=== PATIENT | male | born 1955 | race Two or more races ===

== ENCOUNTER 2020-11-30 20:30 | Emergency (ER) | payer MEDICAID ==
[~2020-11-30] VITALS: Ht 188 cm; Wt 130.0 kg
[2020-11-30 21:42] LABS: HEMATOCRIT. 27.2 % (42.0-52.0); HEMOGLOBIN. 9.5 g/dL (14.0-18.0); MEAN CORPUSCULAR HEMOGLOBIN 38.4 pg (28.0-32.0); MEAN CORPUSCULAR VOLUME 110.2 fL (80.0-94.0); MEAN PLATELET VOLUME 8.8 fl (7.4-10.4); PLATELET 88 x1000/uL (130-400); RED BLOOD CELL COUNT 2.47 mill/uL (4.7-6.1); RED CELL DISTRIBUTION WIDTH 15.7 % (11.6-14.6)
[2020-11-30 21:45] LABS: CHLORIDE 94 mEq/L (98-107)
[2020-11-30 21:51] LABS: BETA HYDROXYBUTYRATE 0.3 mMol/L (0.0-0.3)
[2020-11-30 22:06] LABS: PLATELET ESTIMATE DECREASED
[2020-12-01 01:00] VITALS: BP 149/75
[2020-12-01 01:15] LABS: CLARITY URINE CLEAR (CLEAR); COLOR URINE DARK YELLOW (YELLOW); KETONES URINE NEGATIVE (NEGATIVE); LEUKOCYTE ESTERASE URINE NEGATIVE (NEGATIVE); NITRITE URINE NEGATIVE (NEGATIVE); OCCULT BLOOD URINE NEGATIVE (NEGATIVE); PROTEIN URINE NEGATIVE (NEGATIVE); SPECIFIC GRAVITY URINE 1.015 (1.005-1.030)
[2020-12-01 01:35] LABS: *AMPHETAMINES SCREEN URINE NEGATIVE (NEGATIVE); *BARBITURATES SCREEN URINE NEGATIVE (NEGATIVE); *BENZODIAZEPINES SCREEN URINE NEGATIVE (NEGATIVE); *COCAINE SCREEN URINE NEGATIVE (NEGATIVE); METHADONE URINE SCREEN NEGATIVE (NEGATIVE)
[2020-12-01 01:36] LABS: CANNABINOID URINE SCREEN NEGATIVE (NEGATIVE); OPIATES URINE SCREEN PRESUMTIVE POSITIVE (NEGATIVE); PHENCYCLIDINE URINE SCREEN NEGATIVE (NEGATIVE)
== END 2020-12-01 02:35 | disposition short-term general hospital (02) ==
LOC: ER 20:30 → CANBEDREQ 12-01 03:47
DX: K72.00 Acute and subacute hepatic failure without coma (principal); R18.8 Other ascites; N17.0 Acute kidney failure with tubular necrosis; R26.9 Unspecified abnormalities of gait and mobility; K76.9 Liver disease, unspecified; D50.9 Iron deficiency anemia, unspecified; E11.65 Type 2 diabetes mellitus with hyperglycemia; E78.00 Pure hypercholesterolemia, unspecified; M19.90 Unspecified osteoarthritis, unspecified site; E87.1 Hypo-osmolality and hyponatremia; I11.0 Hypertensive heart disease with heart failure; I50.9 Heart failure, unspecified; E87.2 Acidosis; R74.01 Elevation of levels of liver transaminase levels; Z95.810 Presence of automatic (implantable) cardiac defibrillator
CPT/HCPCS: 36415; 71045; 74176; 80053; 80305; 81003; 82010; 82140; 83605; 83880; 84145; 84484; 85025; 93005; 93970; 99285

== ENCOUNTER 2020-12-11 18:53 | Inpatient (IN) | payer MEDICAID, OTHER ==
[~2020-12-11] VITALS: Ht 185.4 cm; Wt 103.0 kg
[2020-12-11] MEDS ORDERED: SODIUM CHLORIDE 0.9% 1000ML BAG (SEPSIS BOLUS) IV ONE (20:00)
[2020-12-11] MEDS ORDERED: PIPERACILLIN/TAZ 3.375G PREMIX 50 ML IV ONE (20:00)
[2020-12-11] MEDS ORDERED: VANCOMYCIN 1 G PREMIX 200 ML IV ONE (20:00)
[2020-12-11 20:44] LABS: BASOPHILS % 0.3 % (0.0-2.0); EOSINOPHILS % 0.6 % (0.0-5.0); HEMATOCRIT. 29.9 % (42.0-52.0); HEMOGLOBIN. 10.5 g/dL (14.0-18.0); LYMPHOCYTES % 11.8 % (20.0-50.0); MEAN CORPUSCULAR HEMOGLOBIN 37.2 pg (28.0-32.0); MEAN CORPUSCULAR VOLUME 106.2 fL (80.0-94.0); MONOCYTES % 13.4 % (2.0-8.0); NEUTROPHILS % 73.9 % (40.0-76.0); RED BLOOD CELL COUNT 2.81 mill/uL (4.7-6.1); RED CELL DISTRIBUTION WIDTH 15.2 % (11.6-14.6)
[2020-12-11 20:52] LABS: CHLORIDE 97 mEq/L (98-107)
[2020-12-11 20:55] LABS: INR 1.6; PARTIAL THROMBOPLASTIN TIME 45.6 sec (23.4-31.0); PROTHROMBIN TIME 16.8 sec (9.6-11.0)
[2020-12-11] MEDS ORDERED: NOREPINEPHRINE 8 MG in DEXT 5% WATER 242 ML IV STA (22:38)
[2020-12-11] MEDS ORDERED: NOREPINEPHRINE 8MG/250ML PMX 250 ML IV PRN (22:45)
[2020-12-11] MEDS ORDERED: DEXAMETHASONE 10 MG/ML VIAL IV ONE (22:45)
[2020-12-12] VITALS (75 sets, daily range): BP systolic 57–161; BP diastolic 38–86
[2020-12-12 01:32] LABS: BG BASE EXCESS 1.5 mmol/L (-2.0-2.0); BG CARBOXYHEMOGLOBIN 0.3 % (0.5-1.5); BG DEOXYHEMOGLOBIN 4.8 % (0.0-5.0); BG FRACTION INSPIRED OXYGEN 28; BG HCO3 ACT 24.8 mmol/L (22.0-26.0); BG OXYGEN SATURATION 95.2 % (92.0-98.5); BG OXYHEMOGLOBIN 94.9 % (94.0-97.0); BG PH 7.468 (7.350-7.450); BG PO2 74.8 mmHg (75.0-100.0); BG SAMPLE SITE RIGHT RADIAL; BG VENT MODE NASAL CANNULA
[2020-12-12] MEDS ORDERED: POTA20TA82 MT (02:40)
[2020-12-12] MEDS ORDERED: ASCO500C18 MT (02:40)
[2020-12-12] MEDS ORDERED: LOSA50TA41 MT (02:40)
[2020-12-12] MEDS ORDERED: FURO40TA5 MT (02:40)
[2020-12-12] MEDS ORDERED: DOCU-150 MT (02:40)
[2020-12-12] MEDS ORDERED: ATOR-2 MT (02:40)
[2020-12-12] MEDS ORDERED: ASPI-1497 MT (02:40)
[2020-12-12] MEDS ORDERED: LACT10SO30 MT (02:40)
[2020-12-12] MEDS ORDERED: MULT-1146 MT (02:40)
[2020-12-12] MEDS ORDERED: ZINC220C6 PO (02:40)
[2020-12-12] MEDS ORDERED: SENN-155 PO (02:40)
[2020-12-12] MEDS ORDERED: FAMO20TA8 MT (02:40)
[2020-12-12] MEDS ORDERED: ZOLP10TA2 MT (02:40)
[2020-12-12] MEDS ORDERED: CARV6.2548 MT (02:40)
[2020-12-12] MEDS ORDERED: SODIUM CHLORIDE 0.9% 1,000 ML IV ONE (02:45)
[2020-12-12] MEDS ORDERED: PIPERACILLIN/TAZOBACTAM 3.375GM/50ML PREMIX IV ONE (02:45)
[2020-12-12] MEDS ORDERED: VANCOMYCIN 1 G PREMIX 200 ML IV SCH ×2 (03:00→04:00)
[2020-12-12] MEDS ORDERED: PIPERACILLIN/TAZOBACTAM 3.375 G in DEXT 5% WATER 100 ML IV SCH (04:00)
[2020-12-12] MEDS: NOREPINEPHRINE 32 MG in DEXT 5% WATER 218 ML IV PRN ×2 (04:46→17:18)
[2020-12-12] MEDS ORDERED: PIPERACILLIN/TAZOBACTAM 2.25 G in DEXTROSE 5% WATER 50 ML IV SCH (06:00)
[2020-12-12] MEDS ORDERED: ONDANSETRON HCL 4MG/2ML INJ IV PRN (09:00)
[2020-12-12] MEDS ORDERED: DEXTROSE 50% WATER 50ML SYRINGE IV PRN (09:00)
[2020-12-12] MEDS ORDERED: VANCOMYCIN 1 G PREMIX 200 ML IV NR (10:00)
[2020-12-12] MEDS: SODIUM CHLORIDE 0.9% 1,000 ML IV SCH (10:26)
[2020-12-12 10:30] LABS: HEMATOCRIT. 34.7 % (42.0-52.0); HEMOGLOBIN. 12.1 g/dL (14.0-18.0); MEAN CORPUSCULAR VOLUME 106.2 fL (80.0-94.0); RED BLOOD CELL COUNT 3.27 mill/uL (4.7-6.1); RED CELL DISTRIBUTION WIDTH 15.4 % (11.6-14.6)
[2020-12-12 10:57] LABS: PLATELET ESTIMATE NORMAL
[2020-12-12] MEDS: BLOOD SUGAR DIAGNOSTIC STRIP TEST SCH ×3 (11:30→21:23)
[2020-12-12 12:49] LABS: CREATINE KINASE 111 IU/L (39-308)
[2020-12-12] MEDS: INSULIN LISPRO 100 UNITS/ML SUBCUT SCH ×3 (13:06→21:08)
[2020-12-12] MEDS: CEFEPIME 1,000 MG in DEXTROSE 5% WATER 50 ML IV SCH (13:34)
[2020-12-12] MEDS: METRONIDAZOLE 500 MG PREMIX 100 ML IV SCH ×2 (13:34→21:02)
[2020-12-12 17:46] LABS: CLARITY URINE TURBID (CLEAR); COLOR URINE DARK YELLOW (YELLOW); KETONES URINE TRACE (NEGATIVE); LEUKOCYTE ESTERASE URINE 1+ (NEGATIVE); NITRITE URINE NEGATIVE (NEGATIVE); OCCULT BLOOD URINE 3+ (NEGATIVE); PROTEIN URINE 2+ (NEGATIVE); SPECIFIC GRAVITY URINE 1.028 (1.005-1.030)
[2020-12-12 18:14] LABS: *COCAINE SCREEN URINE NEGATIVE (NEGATIVE); METHADONE URINE SCREEN NEGATIVE (NEGATIVE); OPIATES URINE SCREEN PRESUMTIVE POSITIVE (NEGATIVE)
[2020-12-12 18:16] LABS: *AMPHETAMINES SCREEN URINE NEGATIVE (NEGATIVE); *BARBITURATES SCREEN URINE NEGATIVE (NEGATIVE); *BENZODIAZEPINES SCREEN URINE NEGATIVE (NEGATIVE); CANNABINOID URINE SCREEN NEGATIVE (NEGATIVE); PHENCYCLIDINE URINE SCREEN NEGATIVE (NEGATIVE)
[2020-12-13] VITALS (95 sets, daily range): BP systolic 74–141; BP diastolic 41–80
[2020-12-13] MEDS: NOREPINEPHRINE 32 MG in DEXT 5% WATER 218 ML IV PRN ×2 (03:46→16:20)
[2020-12-13 05:51] LABS: HEMOGLOBIN. 13.1 g/dL (14.0-18.0); MEAN CORPUSCULAR HEMOGLOBIN 35.4 pg (28.0-32.0); MEAN CORPUSCULAR VOLUME 108.3 fL (80.0-94.0); MEAN PLATELET VOLUME 9.3 fl (7.4-10.4); PLATELET 185 x1000/uL (130-400); RED CELL DISTRIBUTION WIDTH 16.1 % (11.6-14.6)
[2020-12-13] MEDS: METRONIDAZOLE 500 MG PREMIX 100 ML IV SCH ×3 (05:59→23:22)
[2020-12-13] MEDS: SODIUM CHLORIDE 0.9% 1,000 ML IV SCH ×2 (05:59→09:30)
[2020-12-13] MEDS: BLOOD SUGAR DIAGNOSTIC STRIP TEST SCH ×4 (06:44→21:33)
[2020-12-13] MEDS: INSULIN LISPRO 100 UNITS/ML SUBCUT SCH ×4 (06:48→21:45)
[2020-12-13 08:37] LABS: INR 1.7; PARTIAL THROMBOPLASTIN TIME 44.2 sec (23.4-31.0); PROTHROMBIN TIME 17.6 sec (9.6-11.0)
[2020-12-13] MEDS ORDERED: VANCOMYCIN 1500MG in DEXTROSE 5% WATER 250ML IV SCH (09:00)
[2020-12-13] MEDS ORDERED: INSULIN GLARGINE UD 100 UNITS/ML SYR SUBCUT NR (12:30)
[2020-12-13 12:33] LABS: PLATELET ESTIMATE NORMAL
[2020-12-13] MEDS: MIDODRINE HCL 5MG TABLET PO SCH ×2 (12:49→22:01)
[2020-12-13] MEDS: CEFEPIME 1,000 MG in DEXTROSE 5% WATER 50 ML IV SCH (12:49)
[2020-12-13] MEDS: ACETAMINOPHEN 325MG TABLET PO PRN (16:30)
[2020-12-13] MEDS ORDERED: VANCOMYCIN 1250MG in DEXTROSE 5% WATER 250ML IV NR (18:00)
[2020-12-13] MEDS: GABAPENTIN 100MG CAPSULE PO SCH (22:01)
[2020-12-13] MEDS: INSULIN GLARGINE UD 100 UNITS/ML SYR SUBCUT SCH (22:02)
[2020-12-14] VITALS (103 sets, daily range): BP systolic 69–148; BP diastolic 33–74
[2020-12-14 05:43] LABS: BASOPHILS % 0.3 % (0.0-2.0); HEMATOCRIT. 36.7 % (42.0-52.0); HEMOGLOBIN. 12.3 g/dL (14.0-18.0); LYMPHOCYTES % 7.1 % (20.0-50.0); MEAN CORPUSCULAR HEMOGLOBIN 35.5 pg (28.0-32.0); MEAN CORPUSCULAR VOLUME 105.6 fL (80.0-94.0); MEAN PLATELET VOLUME 9.6 fl (7.4-10.4); MONOCYTES % 11.1 % (2.0-8.0); NEUTROPHILS % 81.5 % (40.0-76.0); PLATELET 114 x1000/uL (130-400); RED BLOOD CELL COUNT 3.47 mill/uL (4.7-6.1); RED CELL DISTRIBUTION WIDTH 15.9 % (11.6-14.6)
[2020-12-14] MEDS: BLOOD SUGAR DIAGNOSTIC STRIP TEST SCH ×4 (05:53→21:06)
[2020-12-14] MEDS: METRONIDAZOLE 500 MG PREMIX 100 ML IV SCH ×3 (06:33→21:52)
[2020-12-14] MEDS: MIDODRINE HCL 5MG TABLET PO SCH ×3 (06:33→21:52)
[2020-12-14] MEDS: GABAPENTIN 100MG CAPSULE PO SCH ×3 (06:33→21:52)
[2020-12-14] MEDS: SODIUM CHLORIDE 0.9% 1,000 ML IV SCH (06:34)
[2020-12-14] MEDS: INSULIN LISPRO 100 UNITS/ML SUBCUT SCH ×4 (06:37→21:49)
[2020-12-14] MEDS: ACETAMINOPHEN 325MG TABLET PO PRN (09:40)
[2020-12-14] MEDS: INSULIN GLARGINE UD 100 UNITS/ML SYR SUBCUT SCH ×2 (09:41→21:53)
[2020-12-14] MEDS: NOREPINEPHRINE 32 MG in DEXT 5% WATER 218 ML IV PRN (09:53)
[2020-12-14] MEDS ORDERED: LIDOCAINE HCL 1% 20ML VIAL (Pyxis) INJ ONE (10:06)
[2020-12-14] MEDS ORDERED: SODIUM BICARBONATE 4% (2.4MEQ) 5ML VIAL IV ONE (10:07)
[2020-12-14] MEDS: CEFEPIME 1,000 MG in DEXTROSE 5% WATER 50 ML IV SCH (12:10)
[2020-12-14 13:55] LABS: BG BASE EXCESS -4.2 mmol/L (-2.0-2.0); BG CARBOXYHEMOGLOBIN 0.6 % (0.5-1.5); BG DEOXYHEMOGLOBIN 8.7 % (0.0-5.0); BG FRACTION INSPIRED OXYGEN 36; BG HCO3 ACT 20.3 mmol/L (22.0-26.0); BG METHEMOGLOBIN 0.3 % (0.0-1.5); BG OXYGEN SATURATION 91.2 % (92.0-98.5); BG OXYHEMOGLOBIN 90.4 % (94.0-97.0); BG PCO2 35.5 mmHg (35.0-45.0); BG PH 7.376 (7.350-7.450); BG PO2 66.1 mmHg (75.0-100.0); BG SAMPLE SITE RIGHT RADIAL; BG TOTAL HEMOGLOBIN 13.3 g/dL (12.0-18.0); BG VENT MODE NASAL CANNULA
[2020-12-14 14:25] LABS: HEPATITIS B SURFACE AB 12.7 mIU/mL
[2020-12-14 14:36] LABS: HEPATITIS B SURFACE ANTIGEN NEGATIVE
[2020-12-14] MEDS ORDERED: ALBUMIN HUMAN 25GM/100ML (25%) IV NR (15:00)
[2020-12-14 15:06] LABS: HEPATITIS A AB IGM NEGATIVE (NEGATIVE)
[2020-12-15] VITALS (99 sets, daily range): BP systolic 55–171; BP diastolic 34–158
[2020-12-15] MEDS: METRONIDAZOLE 500 MG PREMIX 100 ML IV SCH ×3 (05:24→22:07)
[2020-12-15] MEDS: MIDODRINE HCL 5MG TABLET PO SCH ×3 (05:24→22:08)
[2020-12-15] MEDS: GABAPENTIN 100MG CAPSULE PO SCH ×3 (05:24→17:45)
[2020-12-15 05:48] LABS: HEMATOCRIT. 36.6 % (42.0-52.0); HEMOGLOBIN. 12.3 g/dL (14.0-18.0); MEAN CORPUSCULAR HEMOGLOBIN 36.1 pg (28.0-32.0); MEAN CORPUSCULAR VOLUME 106.9 fL (80.0-94.0); MEAN PLATELET VOLUME 9.4 fl (7.4-10.4); PLATELET 80 x1000/uL (130-400); RED BLOOD CELL COUNT 3.42 mill/uL (4.7-6.1); RED CELL DISTRIBUTION WIDTH 15.8 % (11.6-14.6)
[2020-12-15] MEDS: BLOOD SUGAR DIAGNOSTIC STRIP TEST SCH ×4 (06:16→20:03)
[2020-12-15] MEDS: INSULIN LISPRO 100 UNITS/ML SUBCUT SCH ×4 (06:17→20:03)
[2020-12-15] MEDS ORDERED: LIDOCAINE HCL 1% 20ML VIAL (Pyxis) INJ ONE (08:59)
[2020-12-15] MEDS: INSULIN GLARGINE UD 100 UNITS/ML SYR SUBCUT SCH ×2 (10:00→22:09)
[2020-12-15 10:40] LABS: PLATELET ESTIMATE DECREASED
[2020-12-15] MEDS: CEFEPIME 1,000 MG in DEXTROSE 5% WATER 50 ML IV SCH (12:30)
[2020-12-15] MEDS ORDERED: HEPARIN SODIUM 1,000 UNIT/1ML VIAL IV SCH (14:00)
[2020-12-15] MEDS: NOREPINEPHRINE 32 MG in DEXT 5% WATER 218 ML IV PRN (17:57)
[2020-12-15] MEDS: ACETAMINOPHEN 325MG TABLET PO PRN (22:08)
[2020-12-16] VITALS (80 sets, daily range): BP systolic 64–167; BP diastolic 34–82
[2020-12-16] MEDS: MIDODRINE HCL 5MG TABLET PO SCH ×3 (05:22→21:10)
[2020-12-16] MEDS: METRONIDAZOLE 500 MG PREMIX 100 ML IV SCH ×3 (05:22→21:06)
[2020-12-16] MEDS: MORPHINE SULFATE 4 MG/ML CPJ (NOT FOR IM USE) IV PRN (05:23)
[2020-12-16] MEDS: NOREPINEPHRINE 32 MG in DEXT 5% WATER 218 ML IV PRN (05:23)
[2020-12-16] MEDS: GABAPENTIN 100MG CAPSULE PO SCH ×3 (05:24→21:06)
[2020-12-16 05:44] LABS: MEAN CORPUSCULAR HEMOGLOBIN 35.3 pg (28.0-32.0); MEAN CORPUSCULAR VOLUME 106.1 fL (80.0-94.0); MEAN PLATELET VOLUME 9.6 fl (7.4-10.4); PLATELET 82 x1000/uL (130-400); RED BLOOD CELL COUNT 3.67 mill/uL (4.7-6.1); RED CELL DISTRIBUTION WIDTH 15.7 % (11.6-14.6)
[2020-12-16] MEDS: BLOOD SUGAR DIAGNOSTIC STRIP TEST SCH ×4 (05:53→21:00)
[2020-12-16] MEDS: INSULIN LISPRO 100 UNITS/ML SUBCUT SCH ×4 (05:53→21:07)
[2020-12-16] MEDS: INSULIN GLARGINE UD 100 UNITS/ML SYR SUBCUT SCH ×2 (10:51→21:08)
[2020-12-16] MEDS: CEFEPIME 1,000 MG in DEXTROSE 5% WATER 50 ML IV SCH (11:57)
[2020-12-16 14:21] LABS: PLATELET ESTIMATE DECREASED
[2020-12-16] MEDS ORDERED: ZOLPIDEM TARTRATE 5MG TABLET PO PRN (21:00)
[2020-12-17] VITALS (104 sets, daily range): BP systolic 48–169; BP diastolic 26–93
[2020-12-17] MEDS: MORPHINE SULFATE 4 MG/ML CPJ (NOT FOR IM USE) IV PRN (00:03)
[2020-12-17] MEDS: NOREPINEPHRINE 32 MG in DEXT 5% WATER 218 ML IV PRN ×3 (00:10→16:53)
[2020-12-17] MEDS ORDERED: VASOPRESSIN 20 UNIT in SODIUM CHLORIDE 0.9% 99 ML IV PRN ×2 (02:15→02:30)
[2020-12-17] MEDS: METRONIDAZOLE 500 MG PREMIX 100 ML IV SCH (05:24)
[2020-12-17] MEDS: MIDODRINE HCL 5MG TABLET PO SCH ×3 (05:24→21:57)
[2020-12-17] MEDS: GABAPENTIN 100MG CAPSULE PO SCH ×3 (05:24→21:57)
[2020-12-17 05:37] LABS: BASOPHILS % 0.6 % (0.0-2.0); EOSINOPHILS % 0.1 % (0.0-5.0); HEMATOCRIT. 38.4 % (42.0-52.0); HEMOGLOBIN. 12.7 g/dL (14.0-18.0); LYMPHOCYTES % 8.2 % (20.0-50.0); MEAN CORPUSCULAR VOLUME 106.1 fL (80.0-94.0); MEAN PLATELET VOLUME 9.7 fl (7.4-10.4); MONOCYTES % 12.3 % (2.0-8.0); NEUTROPHILS % 78.8 % (40.0-76.0); PLATELET 70 x1000/uL (130-400); RED BLOOD CELL COUNT 3.62 mill/uL (4.7-6.1); RED CELL DISTRIBUTION WIDTH 15.8 % (11.6-14.6)
[2020-12-17] MEDS: INSULIN LISPRO 100 UNITS/ML SUBCUT SCH ×4 (06:29→21:59)
[2020-12-17] MEDS: BLOOD SUGAR DIAGNOSTIC STRIP TEST SCH ×4 (06:29→21:42)
[2020-12-17] MEDS: INSULIN GLARGINE UD 100 UNITS/ML SYR SUBCUT SCH ×2 (10:39→21:58)
[2020-12-18] VITALS (103 sets, daily range): BP systolic 58–145; BP diastolic 36–121
[2020-12-18] MEDS: GABAPENTIN 100MG CAPSULE PO SCH ×3 (06:19→21:40)
[2020-12-18] MEDS: MIDODRINE HCL 5MG TABLET PO SCH ×3 (06:20→21:40)
[2020-12-18] MEDS: BLOOD SUGAR DIAGNOSTIC STRIP TEST SCH ×4 (06:38→21:46)
[2020-12-18] MEDS: INSULIN LISPRO 100 UNITS/ML SUBCUT SCH ×4 (06:48→21:43)
[2020-12-18 10:03] LABS: HEMATOCRIT 33.9 % (42.0-52.0); HEMOGLOBIN 11.6 g/dL (14.0-18.0); MEAN CORPUSCULAR HEMOGLOBIN 35.7 pg (28.0-32.0); MEAN CORPUSCULAR VOLUME 104.7 fL (80.0-94.0); RED BLOOD CELL COUNT 3.24 mill/uL (4.7-6.1); RED CELL DISTRIBUTION WIDTH 16.1 % (11.6-14.6)
[2020-12-18] MEDS: NOREPINEPHRINE 32 MG in DEXT 5% WATER 218 ML IV PRN (10:03)
[2020-12-18] MEDS: INSULIN GLARGINE UD 100 UNITS/ML SYR SUBCUT SCH ×2 (10:04→21:47)
[2020-12-18 10:10] LABS: CHLORIDE 101 mEq/L (98-107)
[2020-12-18] MEDS: MORPHINE SULFATE 4 MG/ML CPJ (NOT FOR IM USE) IV PRN (16:20)
[2020-12-18] MEDS: ALBUMIN HUMAN 12.5G/250ML (5%) IV NR ×2 (19:18→19:56)
[2020-12-19] VITALS (104 sets, daily range): BP systolic 62–164; BP diastolic 45–139
[2020-12-19] MEDS: CYANOCOBALAMIN 1000MCG TABLET PO SCH (05:53)
[2020-12-19] MEDS: GABAPENTIN 100MG CAPSULE PO SCH ×3 (05:53→22:38)
[2020-12-19 05:54] LABS: BASOPHILS % 0.9 % (0.0-2.0); EOSINOPHILS % 1.3 % (0.0-5.0); HEMATOCRIT. 30.4 % (42.0-52.0); HEMOGLOBIN. 10.7 g/dL (14.0-18.0); LYMPHOCYTES % 12.2 % (20.0-50.0); MEAN CORPUSCULAR HEMOGLOBIN 36.7 pg (28.0-32.0); MEAN CORPUSCULAR VOLUME 104.2 fL (80.0-94.0); MONOCYTES % 14.6 % (2.0-8.0); RED BLOOD CELL COUNT 2.92 mill/uL (4.7-6.1); RED CELL DISTRIBUTION WIDTH 15.8 % (11.6-14.6)
[2020-12-19] MEDS: MIDODRINE HCL 5MG TABLET PO SCH ×3 (05:54→22:38)
[2020-12-19] MEDS: BLOOD SUGAR DIAGNOSTIC STRIP TEST SCH ×4 (06:32→21:00)
[2020-12-19] MEDS: INSULIN LISPRO 100 UNITS/ML SUBCUT SCH ×4 (07:09→22:39)
[2020-12-19] MEDS: MORPHINE SULFATE 4 MG/ML CPJ (NOT FOR IM USE) IV PRN (08:55)
[2020-12-19] MEDS: INSULIN GLARGINE UD 100 UNITS/ML SYR SUBCUT SCH ×2 (10:31→22:39)
[2020-12-19] MEDS ORDERED: LIDOCAINE HCL 1% 20ML VIAL (Pyxis) INJ ONE (11:24)
[2020-12-19] MEDS: NOREPINEPHRINE 32 MG in DEXT 5% WATER 218 ML IV PRN (13:17)
[2020-12-19 16:41] LABS: INR 1.7; PROTHROMBIN TIME 17.2 sec (9.6-11.0)
[2020-12-20] VITALS (101 sets, daily range): BP systolic 62–134; BP diastolic 37–80
[2020-12-20] MEDS: ACETAMINOPHEN 325MG TABLET PO PRN (02:27)
[2020-12-20] MEDS: MORPHINE SULFATE 4 MG/ML CPJ (NOT FOR IM USE) IV PRN (02:43)
[2020-12-20 04:57] LABS: HEMATOCRIT. 34.1 % (42.0-52.0); HEMOGLOBIN. 11.6 g/dL (14.0-18.0); MEAN CORPUSCULAR VOLUME 105.5 fL (80.0-94.0); RED BLOOD CELL COUNT 3.23 mill/uL (4.7-6.1); RED CELL DISTRIBUTION WIDTH 15.9 % (11.6-14.6)
[2020-12-20 05:18] LABS: PHOSPHORUS 7.1 mg/dL (2.5-4.9)
[2020-12-20] MEDS: CYANOCOBALAMIN 1000MCG TABLET PO SCH (06:19)
[2020-12-20] MEDS: GABAPENTIN 100MG CAPSULE PO SCH ×3 (06:19→21:39)
[2020-12-20] MEDS: MIDODRINE HCL 5MG TABLET PO SCH ×3 (06:20→21:39)
[2020-12-20] MEDS: BLOOD SUGAR DIAGNOSTIC STRIP TEST SCH ×4 (06:20→21:43)
[2020-12-20] MEDS: INSULIN LISPRO 100 UNITS/ML SUBCUT SCH ×4 (06:21→21:40)
[2020-12-20] MEDS: INSULIN GLARGINE UD 100 UNITS/ML SYR SUBCUT SCH ×2 (09:49→23:10)
[2020-12-20 10:33] LABS: PLATELET 31 x1000/uL (130-400)
[2020-12-20 10:37] LABS: PLATELET ESTIMATE DECREASED
[2020-12-20] MEDS ORDERED: PHYTONADIONE 10MG/ML AMP SUBCUT NR (11:15)
[2020-12-21] VITALS (110 sets, daily range): BP systolic 76–151; BP diastolic 45–77
[2020-12-21] MEDS: CYANOCOBALAMIN 1000MCG TABLET PO SCH (05:10)
[2020-12-21] MEDS: GABAPENTIN 100MG CAPSULE PO SCH ×3 (05:10→21:45)
[2020-12-21] MEDS: MIDODRINE HCL 5MG TABLET PO SCH ×3 (05:10→17:50)
[2020-12-21] MEDS: MORPHINE SULFATE 4 MG/ML CPJ (NOT FOR IM USE) IV PRN (05:20)
[2020-12-21 05:56] LABS: CHLORIDE 97 mEq/L (98-107)
[2020-12-21 05:57] LABS: BASOPHILS % 0.6 % (0.0-2.0); EOSINOPHILS % 1.3 % (0.0-5.0); HEMATOCRIT. 30.8 % (42.0-52.0); HEMOGLOBIN. 10.4 g/dL (14.0-18.0); LYMPHOCYTES % 8.9 % (20.0-50.0); MEAN CORPUSCULAR HEMOGLOBIN 35.6 pg (28.0-32.0); MEAN PLATELET VOLUME 8.7 fl (7.4-10.4); MONOCYTES % 13.1 % (2.0-8.0); NEUTROPHILS % 76.1 % (40.0-76.0); RED BLOOD CELL COUNT 2.91 mill/uL (4.7-6.1); RED CELL DISTRIBUTION WIDTH 16.2 % (11.6-14.6)
[2020-12-21 06:01] LABS: PLATELET 30 x1000/uL (130-400)
[2020-12-21 06:02] LABS: INR 1.6; PARTIAL THROMBOPLASTIN TIME 49.9 sec (23.4-31.0); PROTHROMBIN TIME 16.6 sec (9.6-11.0)
[2020-12-21] MEDS: BLOOD SUGAR DIAGNOSTIC STRIP TEST SCH ×4 (06:33→21:35)
[2020-12-21] MEDS: INSULIN LISPRO 100 UNITS/ML SUBCUT SCH ×4 (06:41→21:47)
[2020-12-21] MEDS: CYANOCOBALAMIN/FA/PYRIDOXINE TABLET PO SCH (09:21)
[2020-12-21] MEDS: FLUDROCORTISONE ACETATE 0.1MG TABLET PO SCH (09:21)
[2020-12-21] MEDS: HYDROCODONE/ACETAMINOPHEN 10/325MG TABLET PO PRN ×2 (09:22→15:06)
[2020-12-21] MEDS: INSULIN GLARGINE UD 100 UNITS/ML SYR SUBCUT SCH ×2 (10:59→21:47)
[2020-12-21] MEDS: NOREPINEPHRINE 32 MG in DEXT 5% WATER 218 ML IV PRN (19:55)
[2020-12-22] VITALS (95 sets, daily range): BP systolic 81–141; BP diastolic 30–94
[2020-12-22] MEDS: MIDODRINE HCL 5MG TABLET PO SCH ×4 (00:36→17:30)
[2020-12-22 05:52] LABS: BASOPHILS % 0.3 % (0.0-2.0); EOSINOPHILS % 1.2 % (0.0-5.0); HEMATOCRIT. 29.6 % (42.0-52.0); HEMOGLOBIN. 10.1 g/dL (14.0-18.0); LYMPHOCYTES % 8.6 % (20.0-50.0); MEAN CORPUSCULAR HEMOGLOBIN 35.9 pg (28.0-32.0); MEAN CORPUSCULAR VOLUME 105.7 fL (80.0-94.0); MEAN PLATELET VOLUME 9.4 fl (7.4-10.4); MONOCYTES % 14.8 % (2.0-8.0); NEUTROPHILS % 75.1 % (40.0-76.0); RED CELL DISTRIBUTION WIDTH 16.1 % (11.6-14.6)
[2020-12-22 06:03] LABS: INR 1.5; PARTIAL THROMBOPLASTIN TIME 48.3 sec (23.4-31.0); PROTHROMBIN TIME 15.8 sec (9.6-11.0)
[2020-12-22] MEDS: GABAPENTIN 100MG CAPSULE PO SCH ×3 (06:08→22:12)
[2020-12-22] MEDS: HYDROCODONE/ACETAMINOPHEN 10/325MG TABLET PO PRN ×3 (06:09→16:22)
[2020-12-22] MEDS: BLOOD SUGAR DIAGNOSTIC STRIP TEST SCH ×4 (06:10→21:00)
[2020-12-22 06:13] LABS: PLATELET 35 x1000/uL (130-400)
[2020-12-22 06:46] LABS: CHLORIDE 98 mEq/L (98-107)
[2020-12-22] MEDS: CYANOCOBALAMIN 1000MCG TABLET PO SCH (07:00)
[2020-12-22] MEDS: INSULIN LISPRO 100 UNITS/ML SUBCUT SCH ×4 (07:35→22:17)
[2020-12-22] MEDS: FLUDROCORTISONE ACETATE 0.1MG TABLET PO SCH (08:49)
[2020-12-22] MEDS: CYANOCOBALAMIN/FA/PYRIDOXINE TABLET PO SCH (08:49)
[2020-12-22 09:42] LABS: BG BASE EXCESS -0.5 mmol/L (-2.0-2.0); BG CARBOXYHEMOGLOBIN 0.7 % (0.5-1.5); BG DEOXYHEMOGLOBIN 3.9 % (0.0-5.0); BG FRACTION INSPIRED OXYGEN 28; BG HCO3 ACT 24.5 mmol/L (22.0-26.0); BG METHEMOGLOBIN 0.2 % (0.0-1.5); BG OXYGEN SATURATION 96.1 % (92.0-98.5); BG OXYHEMOGLOBIN 95.2 % (94.0-97.0); BG PCO2 41.9 mmHg (35.0-45.0); BG PH 7.385 (7.350-7.450); BG PO2 88.2 mmHg (75.0-100.0); BG SAMPLE SITE RIGHT RADIAL; BG TOTAL HEMOGLOBIN 11.2 g/dL (12.0-18.0); BG VENT MODE NASAL CANNULA
[2020-12-22] MEDS: INSULIN GLARGINE UD 100 UNITS/ML SYR SUBCUT SCH ×2 (10:27→22:17)
[2020-12-22] MEDS: MORPHINE SULFATE 15MG TABLET SR PO SCH ×2 (13:00→22:14)
[2020-12-22] MEDS: NOREPINEPHRINE 32 MG in DEXT 5% WATER 218 ML IV PRN (21:56)
[2020-12-22] MEDS: LACTULOSE 20G/30ML UDC PO SCH (22:12)
[2020-12-23] VITALS (106 sets, daily range): BP systolic 71–157; BP diastolic 36–89
[2020-12-23] MEDS: MIDODRINE HCL 5MG TABLET PO SCH ×4 (00:25→17:37)
[2020-12-23] MEDS: GABAPENTIN 100MG CAPSULE PO SCH ×3 (05:49→22:09)
[2020-12-23] MEDS: LACTULOSE 20G/30ML UDC PO SCH ×3 (05:49→22:09)
[2020-12-23] MEDS: CYANOCOBALAMIN 1000MCG TABLET PO SCH (05:50)
[2020-12-23 06:01] LABS: EOSINOPHILS % 1.5 % (0.0-5.0); HEMATOCRIT. 31.1 % (42.0-52.0); HEMOGLOBIN. 10.4 g/dL (14.0-18.0); LYMPHOCYTES % 11.8 % (20.0-50.0); MEAN CORPUSCULAR HEMOGLOBIN 36.3 pg (28.0-32.0); MEAN CORPUSCULAR VOLUME 108.6 fL (80.0-94.0); MEAN PLATELET VOLUME 9.6 fl (7.4-10.4); MONOCYTES % 13.9 % (2.0-8.0); NEUTROPHILS % 71.8 % (40.0-76.0); RED BLOOD CELL COUNT 2.87 mill/uL (4.7-6.1); RED CELL DISTRIBUTION WIDTH 17.2 % (11.6-14.6)
[2020-12-23] MEDS: BLOOD SUGAR DIAGNOSTIC STRIP TEST SCH ×4 (06:05→21:00)
[2020-12-23] MEDS: INSULIN LISPRO 100 UNITS/ML SUBCUT SCH ×4 (06:24→22:11)
[2020-12-23 07:05] LABS: PLATELET 43 x1000/uL (130-400)
[2020-12-23] MEDS: CYANOCOBALAMIN/FA/PYRIDOXINE TABLET PO SCH (09:13)
[2020-12-23] MEDS: INSULIN GLARGINE UD 100 UNITS/ML SYR SUBCUT SCH ×2 (09:13→22:18)
[2020-12-23] MEDS: FLUDROCORTISONE ACETATE 0.1MG TABLET PO SCH (09:14)
[2020-12-23] MEDS: MORPHINE SULFATE 15MG TABLET SR PO SCH ×2 (09:14→22:10)
[2020-12-23 10:51] LABS: INR 1.4
[2020-12-23] MEDS: NOREPINEPHRINE 32 MG in DEXT 5% WATER 218 ML IV PRN (22:12)
[2020-12-24] VITALS (95 sets, daily range): BP systolic 81–120; BP diastolic 37–61
[2020-12-24] MEDS: MIDODRINE HCL 5MG TABLET PO SCH ×4 (00:04→17:14)
[2020-12-24] MEDS: LACTULOSE 20G/30ML UDC PO SCH ×3 (06:31→22:00)
[2020-12-24] MEDS: GABAPENTIN 100MG CAPSULE PO SCH ×3 (06:31→22:19)
[2020-12-24] MEDS: CYANOCOBALAMIN 1000MCG TABLET PO SCH (06:32)
[2020-12-24] MEDS: INSULIN LISPRO 100 UNITS/ML SUBCUT SCH ×4 (06:33→21:00)
[2020-12-24] MEDS: BLOOD SUGAR DIAGNOSTIC STRIP TEST SCH ×4 (06:35→21:14)
[2020-12-24 06:56] LABS: BASOPHILS % 0.4 % (0.0-2.0); EOSINOPHILS % 1.4 % (0.0-5.0); HEMATOCRIT. 26.4 % (42.0-52.0); HEMOGLOBIN. 8.9 g/dL (14.0-18.0); LYMPHOCYTES % 7.4 % (20.0-50.0); MEAN CORPUSCULAR HEMOGLOBIN 36.7 pg (28.0-32.0); MEAN CORPUSCULAR VOLUME 108.6 fL (80.0-94.0); MEAN PLATELET VOLUME 9.2 fl (7.4-10.4); MONOCYTES % 12.5 % (2.0-8.0); NEUTROPHILS % 78.3 % (40.0-76.0); RED BLOOD CELL COUNT 2.43 mill/uL (4.7-6.1); RED CELL DISTRIBUTION WIDTH 16.7 % (11.6-14.6)
[2020-12-24 07:19] LABS: PLATELET 50 x1000/uL (130-400)
[2020-12-24] MEDS ORDERED: LIDOCAINE HCL 1% 20ML VIAL (Pyxis) INJ ONE (07:50)
[2020-12-24 07:51] LABS: INR 1.4; PROTHROMBIN TIME 15.1 sec (9.6-11.0)
[2020-12-24] MEDS ORDERED: SODIUM BICARBONATE 4% (2.4MEQ) 5ML VIAL IV ONE (07:51)
[2020-12-24] MEDS ORDERED: ALBUMIN HUMAN 25GM/500ML (5%) IV PRN (08:30)
[2020-12-24] MEDS: MORPHINE SULFATE 15MG TABLET SR PO SCH ×2 (10:29→22:20)
[2020-12-24] MEDS: FLUDROCORTISONE ACETATE 0.1MG TABLET PO SCH (10:29)
[2020-12-24] MEDS: INSULIN GLARGINE UD 100 UNITS/ML SYR SUBCUT SCH ×2 (10:30→22:20)
[2020-12-24] MEDS: CYANOCOBALAMIN/FA/PYRIDOXINE TABLET PO SCH (10:30)
[2020-12-24] MEDS: HYDROCODONE/ACETAMINOPHEN 10/325MG TABLET PO PRN (12:23)
[2020-12-25] VITALS (80 sets, daily range): BP systolic 68–158; BP diastolic 26–86
[2020-12-25] MEDS: MIDODRINE HCL 5MG TABLET PO SCH ×5 (00:10→23:37)
[2020-12-25 04:56] LABS: BASOPHILS % 0.5 % (0.0-2.0); EOSINOPHILS % 1.2 % (0.0-5.0); HEMATOCRIT. 29.5 % (42.0-52.0); MEAN CORPUSCULAR HEMOGLOBIN 36.5 pg (28.0-32.0); MEAN CORPUSCULAR VOLUME 107.3 fL (80.0-94.0); MEAN PLATELET VOLUME 8.8 fl (7.4-10.4); MONOCYTES % 13.8 % (2.0-8.0); NEUTROPHILS % 76.5 % (40.0-76.0); PLATELET 59 x1000/uL (130-400); RED BLOOD CELL COUNT 2.75 mill/uL (4.7-6.1); RED CELL DISTRIBUTION WIDTH 17.1 % (11.6-14.6)
[2020-12-25] MEDS: GABAPENTIN 100MG CAPSULE PO SCH ×3 (06:00→21:04)
[2020-12-25] MEDS: LACTULOSE 20G/30ML UDC PO SCH ×3 (06:00→21:04)
[2020-12-25] MEDS: CYANOCOBALAMIN 1000MCG TABLET PO SCH (07:00)
[2020-12-25] MEDS: INSULIN LISPRO 100 UNITS/ML SUBCUT SCH ×4 (07:00→20:19)
[2020-12-25] MEDS: BLOOD SUGAR DIAGNOSTIC STRIP TEST SCH ×4 (07:01→20:01)
[2020-12-25] MEDS: FLUDROCORTISONE ACETATE 0.1MG TABLET PO SCH (08:11)
[2020-12-25] MEDS: FOLIC ACID/VITAMIN B COMP W-C TABLET PO SCH (08:12)
[2020-12-25] MEDS: CYANOCOBALAMIN/FA/PYRIDOXINE TABLET PO SCH (08:12)
[2020-12-25] MEDS: NOREPINEPHRINE 32 MG in DEXT 5% WATER 218 ML IV PRN (09:00)
[2020-12-25] MEDS: INSULIN GLARGINE UD 100 UNITS/ML SYR SUBCUT SCH ×2 (10:00→21:05)
[2020-12-25] MEDS: MORPHINE SULFATE 15MG TABLET SR PO SCH ×2 (10:50→20:13)
[2020-12-26] VITALS (65 sets, daily range): BP systolic 46–109; BP diastolic 29–58
[2020-12-26] MEDS: NOREPINEPHRINE 32 MG in DEXT 5% WATER 218 ML IV PRN (01:19)
[2020-12-26 04:47] LABS: HEMATOCRIT. 30.2 % (42.0-52.0); HEMOGLOBIN. 10.1 g/dL (14.0-18.0); MEAN CORPUSCULAR HEMOGLOBIN 36.5 pg (28.0-32.0); MEAN CORPUSCULAR VOLUME 109.1 fL (80.0-94.0); MEAN PLATELET VOLUME 9.5 fl (7.4-10.4); RED BLOOD CELL COUNT 2.77 mill/uL (4.7-6.1); RED CELL DISTRIBUTION WIDTH 17.9 % (11.6-14.6)
[2020-12-26 05:03] LABS: PLATELET 49 x1000/uL (130-400)
[2020-12-26] MEDS: LACTULOSE 20G/30ML UDC PO SCH ×2 (06:20→13:17)
[2020-12-26] MEDS: INSULIN LISPRO 100 UNITS/ML SUBCUT SCH ×2 (06:21→12:00)
[2020-12-26] MEDS: BLOOD SUGAR DIAGNOSTIC STRIP TEST SCH ×2 (06:22→11:12)
[2020-12-26] MEDS: CYANOCOBALAMIN 1000MCG TABLET PO SCH (06:22)
[2020-12-26] MEDS: MIDODRINE HCL 5MG TABLET PO SCH ×2 (06:22→12:00)
[2020-12-26] MEDS: GABAPENTIN 100MG CAPSULE PO SCH (06:22)
[2020-12-26] MEDS: MORPHINE SULFATE 15MG TABLET SR PO SCH (09:00)
[2020-12-26] MEDS: CYANOCOBALAMIN/FA/PYRIDOXINE TABLET PO SCH (09:00)
[2020-12-26] MEDS: FOLIC ACID/VITAMIN B COMP W-C TABLET PO SCH (09:00)
[2020-12-26] MEDS: FLUDROCORTISONE ACETATE 0.1MG TABLET PO SCH (09:00)
[2020-12-26] MEDS: INSULIN GLARGINE UD 100 UNITS/ML SYR SUBCUT SCH (11:15)
[2020-12-26] MEDS ORDERED: MORPHINE SULFATE 250 MG in DEXT 5% WATER 240 ML IV PRN (12:45)
[2020-12-26 14:41] LABS: PLATELET ESTIMATE MARKEDLY DECREASED
[2020-12-26] MEDS ORDERED: LORAZEPAM 2MG/ML CPJ IV PRN (15:15)
== END 2020-12-26 16:56 | DRG 720 ==
LOC: ER 18:53 → EDBEDREQ 22:51 → ENRESERV 23:31 → MICUSO 12-12 02:38 → MICUNO 12-13 04:40
PROVIDERS: ADMIT Internal Medicine; ATTEND Internal Medicine
PROC: 06HY33Z Insertion of Infusion Device into Lower Vein, Percutaneous Approach (ICD-10-PCS; principal; 2020-12-12)
PROC: B54CZZA Ultrasonography of Left Lower Extremity Veins, Guidance (ICD-10-PCS; 2020-12-13)
PROC: 06HY33Z Insertion of Infusion Device into Lower Vein, Percutaneous Approach (ICD-10-PCS; 2020-12-13)
PROC: 5A1D70Z Performance of Urinary Filtration, Intermittent, Less than 6 Hours Per Day (ICD-10-PCS; 2020-12-13)
PROC: 0W9G3ZZ Drainage of Peritoneal Cavity, Percutaneous Approach (ICD-10-PCS; 2020-12-14)
PROC: 5A1D70Z Performance of Urinary Filtration, Intermittent, Less than 6 Hours Per Day (ICD-10-PCS; 2020-12-14)
PROC: 02HV33Z Insertion of Infusion Device into Superior Vena Cava, Percutaneous Approach (ICD-10-PCS; 2020-12-15)
PROC: B548ZZA Ultrasonography of Superior Vena Cava, Guidance (ICD-10-PCS; 2020-12-15)
PROC: 5A1D70Z Performance of Urinary Filtration, Intermittent, Less than 6 Hours Per Day (ICD-10-PCS; 2020-12-15)
PROC: 5A1D70Z Performance of Urinary Filtration, Intermittent, Less than 6 Hours Per Day (ICD-10-PCS; 2020-12-17)
PROC: 02HV33Z Insertion of Infusion Device into Superior Vena Cava, Percutaneous Approach (ICD-10-PCS; 2020-12-19)
PROC: B548ZZA Ultrasonography of Superior Vena Cava, Guidance (ICD-10-PCS; 2020-12-19)
PROC: 5A1D70Z Performance of Urinary Filtration, Intermittent, Less than 6 Hours Per Day (ICD-10-PCS; 2020-12-19)
PROC: 30233R1 Transfusion of Nonautologous Platelets into Peripheral Vein, Percutaneous Approach (ICD-10-PCS; 2020-12-21)
PROC: 5A1D70Z Performance of Urinary Filtration, Intermittent, Less than 6 Hours Per Day (ICD-10-PCS; 2020-12-23)
PROC: 0W9G3ZZ Drainage of Peritoneal Cavity, Percutaneous Approach (ICD-10-PCS; 2020-12-24)
PROC: 5A1D70Z Performance of Urinary Filtration, Intermittent, Less than 6 Hours Per Day (ICD-10-PCS; 2020-12-25)
DX: A41.9 Sepsis, unspecified organism (principal); J96.00 Acute respiratory failure, unspecified whether with hypoxia or hypercapnia; K72.00 Acute and subacute hepatic failure without coma; K76.7 Hepatorenal syndrome; E43 Unspecified severe protein-calorie malnutrition; N17.0 Acute kidney failure with tubular necrosis; G93.40 Encephalopathy, unspecified; J18.9 Pneumonia, unspecified organism; K76.6 Portal hypertension; Z66 Do not resuscitate; R18.8 Other ascites; R65.21 Severe sepsis with septic shock; D68.4 Acquired coagulation factor deficiency; D69.6 Thrombocytopenia, unspecified; E11.42 Type 2 diabetes mellitus with diabetic polyneuropathy; E87.2 Acidosis; I50.9 Heart failure, unspecified; E87.1 Hypo-osmolality and hyponatremia; E78.00 Pure hypercholesterolemia, unspecified; E78.5 Hyperlipidemia, unspecified; I25.10 Atherosclerotic heart disease of native coronary artery without angina pectoris; K40.90 Unilateral inguinal hernia, without obstruction or gangrene, not specified as recurrent; K74.60 Unspecified cirrhosis of liver; Z20.822 Contact with and (suspected) exposure to COVID-19; I42.9 Cardiomyopathy, unspecified; B19.20 Unspecified viral hepatitis C without hepatic coma; D53.9 Nutritional anemia, unspecified; I13.0 Hypertensive heart and chronic kidney disease with heart failure and stage 1 through stage 4 chronic kidney disease, or unspecified chronic kidney disease; E11.22 Type 2 diabetes mellitus with diabetic chronic kidney disease; N18.9 Chronic kidney disease, unspecified; E86.1 Hypovolemia; R16.1 Splenomegaly, not elsewhere classified; F11.20 Opioid dependence, uncomplicated; M19.90 Unspecified osteoarthritis, unspecified site; R16.0 Hepatomegaly, not elsewhere classified; R53.81 Other malaise; I27.20 Pulmonary hypertension, unspecified; E87.8 Other disorders of electrolyte and fluid balance, not elsewhere classified; I07.1 Rheumatic tricuspid insufficiency; N39.0 Urinary tract infection, site not specified; C78.7 Secondary malignant neoplasm of liver and intrahepatic bile duct; S51.811A Laceration without foreign body of right forearm, initial encounter; X58.XXXA Exposure to other specified factors, initial encounter; Z79.899 Other long term (current) drug therapy; Z93.3 Colostomy status; Z79.82 Long term (current) use of aspirin; Y93.89 Activity, other specified; Y92.89 Other specified places as the place of occurrence of the external cause; Y99.8 Other external cause status; Z68.29 Body mass index [BMI] 29.0-29.9, adult; Z95.810 Presence of automatic (implantable) cardiac defibrillator; Z93.6 Other artificial openings of urinary tract status
CPT/HCPCS: 36415; 36556; 36580; 36600; 49083; 71045; 71250; 74018; 74176; 76700; 76705; 76937; 80048; 80053; 80061; 80076; 80202; 80305; 81003; 82040; 82105; 82140; 82248; 82375; 82378; 82550; 82805; 82962; 83605; 83735; 83880; 84100; 84134; 84145; 84443; 84484; 85025; 85027; 85049; 86301; 86705; 86706; 86709; 86803; 86850; 86900; 87340; 87426; 93005; 93306; 93970; 97110; 97162; 97166; 99291; A6261; C1725; C1752; J0692; J1100; J1644; J1815; J2270; J2274; J2543; J3370; J3430; J3490; J7030; J7040; J7050; J7060; P9034; P9041; P9047; U0003; U0005; A4315